=== PATIENT | female | born 1980 | race Caucasian/White ===

== ENCOUNTER 2022-06-16 09:59 | Emergency (ER) | payer OTHER, SELFPAY ==
[2022-06-16 11:53] LABS: Urine Blood Negative (Negative); Urine Glucose Negative (Negative); Urine Protein Negative (Negative); Urine Specific Gravity >=1.030 (1.005-1.030); Urine pH 5.5 (5.0-7.0)
--- NOTE | 2022-06-16 13:12 | RAD REPORT ---
EXAM DESCRIPTION: RAD - Pelvis - 06/16/2022 12:57 pm CLINICAL HISTORY: TRAUMA COMPARISON: No comparisons FINDINGS: No fracture, dislocation or radiographic evidence of AVN. IMPRESSION: Negative study.
--- NOTE | 2022-06-16 13:12 | RAD REPORT ---
EXAM DESCRIPTION: RAD - Ribs Bilateral - 06/16/2022 12:56 pm CLINICAL HISTORY: TRAUMA Fall, left-sided pain COMPARISON: CHEST SINGLE VIEW dated 11/26/2012 FINDINGS: There is a significant scoliosis of the thoracolumbar spine with probable vertebral body a nomaly or fusion anomaly at the thoracolumbar junction. No displaced rib fractures seen. The lungs ar e clear. No pneumothorax. IMPRESSION: No displaced rib fracture evident.
--- NOTE | 2022-06-16 13:24 | EDPHYS ---
Physician Documentation [facility] Name: Humaira Hernández Age: 41 yrs Sex: Female : 1980 Arrival Date: 06/16/2022 Time: 10:02 Bed 9 Private MD: ED Physician Ronny Hamm HPI: 06/16 13:20 This 41 yrs old Female presents to ER via Ambulatory with complaints of left jl9 rib pain s/p fall 5 days ago while rollerskating. . 13:20 Onset: The symptoms/episode began/occurred 5 day(s) ago. Associated signs and symptoms: jl9 The patient has no apparent associated signs or symptoms. Modifying factors: The patient symptoms are alleviated by rest, the patient symptoms are aggravated by movement. 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 - Social history:: Smoking status: Patient denies any tobacco usage or history of. ROS: 13:21 Constitutional: Negative for fever, chills, and weight loss, Eyes: Negative for injury, jl9 pain, redness, and discharge, ENT: Negative for injury, pain, and discharge, Neck: Negative for injury, pain, and swelling, Cardiovascular: Negative for chest pain, palpitations, and edema. 13:21 Abdomen/GI: Negative for abdominal pain, nausea, vomiting, diarrhea, and constipation, Back: Negative for injury and pain, MS/Extremity: Negative for injury and deformity, Skin: Negative for injury, rash, and discoloration, Neuro: Negative for headache, weakness, numbness, tingling, and seizure, Psych: Negative for depression, anxiety, suicide ideation, homicidal ideation, and hallucinations, Allergy/Immunology: Negative for hives, rash, and allergies, Endocrine: Negative for neck swelling, polydipsia, polyuria, polyphagia, and marked weight changes, Hematologic/Lymphatic: Negative for swollen nodes, abnormal bleeding, and unusual bruising. 13:21 Respiratory: Positive for left sided rib pain. Exam: 13:22 Constitutional: This is a well developed, well nourished patient who is awake, alert, jl9 and in no acute distress. Head/Face: Normocephalic, atraumatic. Eyes: Pupils equal round and reactive to light, extra-ocular motions intact. Lids and lashes normal. Conjunctiva and sclera are non-icteric and not injected. Cornea within normal limits. Periorbital areas with no swelling, redness, or edema. ENT: Mucous membranes moist. Neck: Trachea midline, no thyromegaly or masses palpated, and no cervical lymphadenopathy. Supple, full range of motion without nuchal rigidity, or vertebral point tenderness. No Meningismus. 13:22 Cardiovascular: Regular rate and rhythm with a normal S1 and S2. No gallops, murmurs, or rubs. Normal PMI, no JVD. No pulse deficits. Respiratory: Lungs have equal breath sounds bilaterally, clear to auscultation and percussion. No rales, rhonchi or wheezes noted. No increased work of breathing, no retractions or nasal flaring. Abdomen/GI: Soft, non-tender, with normal bowel sounds. No distension or tympany. No guarding or rebound. No evidence of tenderness throughout. Back: No spinal tenderness. No costovertebral tenderness. Full range of motion. Skin: Warm, dry with normal turgor. Normal color with no rashes, no lesions, and no evidence of cellulitis. MS/ Extremity: Pulses equal, no cyanosis. Neurovascular intact. Full, normal range of motion. Neuro: Awake and alert, GCS 15, oriented to person, place, time, and situation. Cranial nerves II-XII grossly intact. Motor strength 5/5 in all extremities. Sensory grossly intact. Cerebellar exam normal. Normal gait. Psych: Awake, alert, with orientation to person, place and time. Behavior, mood, and affect are within normal limits. 13:22 Chest/axilla: Inspection: normal, Palpation: tenderness, Axilla: are normal. Vital Signs: 10:06 BP 120 / 58; Pulse 80; Resp 17; Temp 98.4(TE); Pulse Ox 100% on R/A; Weight 54.88 kg tw2 (R); Height 4 ft. 10 in. (147.32 cm); Pain 8/10; 13:45 BP 118 / 58; Pulse 78; Resp 18; Pulse Ox 100% ; kb3 10:06 Body Mass Index 25.29 (54.88 kg, 147.32 cm) tw2 MDM: 10:55 Patient medically screened. jl9 13:22 Data reviewed: vital signs, nurses notes. Counseling: I had a detailed discussion with jl9 the patient and/or guardian regarding: the historical points, exam findings, and any diagnostic results supporting the discharge/admit diagnosis, radiology results, the need for outpatient follow up, to return to the emergency department if symptoms worsen or persist or if there are any questions or concerns that arise at home. 06/16 11:54 Order name: Urine Dipstick-Ancillary; Complete Time: 11:58 [facility] 06/16 13:34 Order name: Urine --Ancillary (enter results); Complete Time: 13:49 06/16 10:55 Order name: Urine Test (obtain specimen); Complete [facility]: 13:43 [facility] 06/16 10:55 Order name: Urine Dipstick-Ancillary (obtain specimen); Complete Time: 13:43 [facility] 06/16 10:55 Order name: XRAY Ribs BILATERAL; Complete Time: 13:19 [facility] 06/16 10:55 Order name: XRAY Pelvis; Complete Time: 13:19 [facility] Administered Medications: No medications were administered Disposition Summary: 06/16/22 13:23 Discharge Ordered Location: Home jl9 Condition: Stable jl9 Diagnosis - Sprain of ribs jl9 Followup: jl9 - With: Private Physician - When: 1 - 2 days - Reason: Recheck today's complaints, Continuance of care, Re-evaluation by your physician Discharge Instructions: - Discharge Summary Sheet jl9 - Rib Contusion jl9 Forms: - Medication Reconciliation Form jl9 - Thank You Letter jl9 - Antibiotic Education jl9 - Prescription Opioid Use jl9 - Work release form kb3 Signatures: Dispatcher [employer] EDMS Emi Santillan RN RN tw2 Han, Bipin jl9
--- NOTE | 2022-06-16 13:24 | ER ---
Nurse's Notes [facility] Name: Humaira Hernández Age: 41 yrs Sex: Female : 1980 Arrival Date: 06/16/2022 Time: 10:02 Bed 9 Private MD: Diagnosis: Sprain of ribs Presentation: 06/16 10:06 Chief complaint: Patient states: i had a rollerbladeing accident satur. we were tw2 playing tag. i ended up falling all on the LEFT side. my left hip is bruised. it feels like a bone is going to come through my skin and its under my left breast. i do have heart problems and i might be . Coronavirus screen: At this time, the client does not indicate any symptoms associated with coronavirus-19. Ebola Screen: Patient denies travel to an Ebola-affected area in the 21 days before illness onset. Initial Sepsis Screen: Does the patient meet any 2 criteria? No. Patient's initial sepsis screen is negative. Does the patient have a suspected source of infection? No. Patient's initial sepsis screen is negative. Risk Assessment: Do you want to hurt yourself or someone else? Patient reports no desire to harm self or others. Onset of symptoms was June 16, 2022. 10:06 Method Of Arrival: Ambulatory tw2 10:06 Acuity: SARINA 3 tw2 Triage Assessment: 10:10 General: Appears in no apparent distress. slender, well groomed, Behavior is calm, tw2 cooperative, appropriate for age. Pain: Complains of pain in left rib cage. Neuro: Level of Consciousness is awake, alert, obeys commands, Oriented to person, place, time, situation. Respiratory: Airway is patent Respiratory effort is even, unlabored, Respiratory pattern is regular, symmetrical. 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 - Social history:: Smoking status: Patient denies any tobacco usage or history of. Screenin:14 Abuse screen: Denies threats or abuse. Nutritional screening: No deficits noted. tw2 Tuberculosis screening: No symptoms or risk factors identified. Fall Risk None identified. Assessment: 12:30 General: Appears in no apparent distress. Behavior is calm, cooperative, Received care kb3 of pt from [email or web address]. PT is AAO x4, ambulatory. Reports she tripped and fell while roller blading at a skating rink on Monday. Reports she fell to a hard wood surface and landed on her left side. Reports bruising to her left hip and left rib pain from axilla to lower ribs. Pt denies LOC, denies difficulty breathing, reports pain is increased with deep breathing and movement.. 12:30 Musculoskeletal: Reports pain in left upper and lower ribs, midaxillary. kb3 Vital Signs: 10:06 BP 120 / 58; Pulse 80; Resp 17; Temp 98.4(TE); Pulse Ox 100% on R/A; Weight 54.88 kg tw2 (R); Height 4 ft. 10 in. (147.32 cm); Pain 8/10; 13:45 BP 118 / 58; Pulse 78; Resp 18; Pulse Ox 100% ; kb3 10:06 Body Mass Index 25.29 (54.88 kg, 147.32 cm) tw2 ED Course: 10:02 Patient arrived in ED. rg4 10:06 Arm band placed on. tw2 10:10 Triage completed. tw2 10:53 Bipin Han is PHCP. jl9 10:53 Ronny Hamm MD is Attending Physician. jl9 12:30 Patient has correct armband on for positive identification. Bed in low position. Call kb3 light in reach. 12:30 No provider procedures requiring assistance completed. Patient did not have IV access kb3 during this emergency room visit. 12:33 Dorina Deluca, RN is Primary Nurse. kb3 12:47 Patient moved to radiology. kb3 12:58 XRAY Ribs BILATERAL In Process Unspecified. EDMS 12:58 XRAY Pelvis In Process Unspecified. EDMS Administered Medications: No medications were administered Medication: 10:14 VIS not applicable for this client. tw2 Outcome: 13:23 Discharge ordered by . brook 13:45 Discharged to home ambulatory. kb3 13:45 Condition: stable 13:45 Discharge instructions given to patient, Instructed on discharge instructions, follow up and referral plans. medication usage, Demonstrated understanding of instructions, follow-up care, medications. 14:00 Patient left the ED. kb3 Signatures: Dispatcher [employer] EDMS Emi Santillan, RN RN tw2 Lucrecia Sloan John jl9 Dorina Deluca, RN RN kb3
[2022-06-17 15:16] VITALS: TEMP 98.4; O2SAT 100
[2022-06-17 15:47] VITALS: BP 118/58
== END 2022-06-16 14:00 | disposition home or self-care (01) ==
LOC: ER 09:59
DX: S23.41XA Sprain of ribs, initial encounter (principal)
CPT/HCPCS: 71110; 72170; 81003; 81025; 99283

== ENCOUNTER 2025-07-21 20:31 | Emergency (ER) | payer OTHER ==
[2025-07-21 21:52] LABS: Absolute Lymphocytes (CBC) 1.5 K/uL (0.7-4.9); Hematocrit 31.9 % (36.0-45.0); Hemoglobin 10.2 g/dL (12.0-15.0); MCH 25.2 pg (27.0-35.0); MCHC 32.0 g/dL (32.0-36.0); MCV 78.9 fL (80-100); MPV 9.6 fL (7.6-11.3); Nucleated RBC Absolute Count 0.0 (0-0); Nucleated Red Blood Cells % 0.0 % (0-0); RBC Red Blood Cell Count 4.04 M/uL (3.86-4.86); White Blood Count 12.10 thou/uL (4.3-10.9)
[2025-07-21 22:28] LABS: ALT/SGPT 35 U/L (13-56); Albumin 3.8 g/dL (3.4-5.0); Albumin/Globulin Ratio 1.0 (1.1-1.8); Alkaline Phosphatase 82 U/L (45-117); Anion Gap 8.4 mEq/L (5.0-15.0); BUN Blood Urea Nitrogen 13 mg/dL (7-18); Globulin 3.9 g/dL (2.3-3.5); Glucose Level 116 mg/dL (74-106); Troponin High Sensitivity 16.2 pg/mL (<58.9)
[2025-07-21 22:33] LABS: AST/SGOT 31 U/L (15-37); Bilirubin Indirect, Calculated 0.2 mg/dL (0.2-0.8); Magnesium 2.1 mg/dL (1.6-2.4); Potassium 3.4 mEq/L (3.5-5.1)
--- NOTE | 2025-07-22 01:02 | EDPHYS ---
Physician Documentation [facility] Name: Humaira Castellanos Age: 44 yrs Sex: Female : 1980 Arrival Date: 07/21/2025 Time: 20:31 Bed 24 Private MD: ED Physician Chuck Verduzco HPI: 07/21 22:07 This 44 yrs old Female presents to ER via EMS with complaints of Abdominal Pain, kb Weakness. 22:07 Patient is a 44-year-old female who presents for near syncope that occurred just prior kb to arrival. States she felt some right lower quadrant pain after eating, went to the restroom and had a near syncopal episode. Reports her watch showed a heart rate down to 48. Patient states she is feeling weak now and still having abdominal pain.. Historical: - Allergies: 20:59 Aspirin; kj2 20:59 Codeine; kj2 20:59 Phenergan; kj2 - PMHx: 20:59 Atrial fibrillation; Cardioversion; Cardioversion; Cardioversion; mitral valve kj2 prolapse; Tachycardia; - PSHx: 20:59 3 cardiac ablations; section; kj2 - Immunization history:: Adult Immunizations unknown. - Infectious Disease History:: Denies. - Social history:: Smoking status: unknown. ROS: 22:05 Constitutional: As per HPI kb Exam: 22:04 Constitutional: This is a well developed, well nourished patient who is awake, alert, kb and in no acute distress. Head/Face: Normocephalic, atraumatic. ENT: Moist Mucous membranes Cardiovascular: Regular rate Respiratory: Respirations even and unlabored. No increased work of breathing. Talking in full sentences Skin: Warm, dry with normal turgor. Normal color. MS/ Extremity: Pulses equal, no cyanosis. Neurovascular intact. Full, normal range of motion. Neuro: Awake and alert, GCS 15, oriented to person, place, time, and situation. 22:04 ECG was reviewed by the Attending Physician. Vital Signs: 20:45 BP 98 / 56; Pulse 80; Resp 20; Temp 97.9; Pulse Ox 99% ; kj2 22:45 BP 111 / 54; Pulse 78; Resp 20; Pulse Ox 100% ; kj2 22:47 Weight 56.7 kg; Height 4 ft. 10 in. ; kj2 23:32 BP 125 / 57 Standing; Pulse 78; Resp 20; kj2 23:32 BP 122 / 62 Sitting; Pulse 70; Resp 20; kj2 23:40 BP 100 / 58 Supine; Pulse 67; Resp 18; kj2 07/22 00:00 BP 101 / 58; Pulse 68; Resp 17; Pulse Ox 99% ; jj7 01:00 BP 110 / 55; Pulse 69; Resp 18; Temp 98; Pulse Ox 97% ; j7 07/21 22:47 Body Mass Index 26.12 (56.70 kg, 147.32 cm) kj2 MDM: 07/21 20:37 Medical Screening Exam initiated kb 22:06 Data reviewed: vital signs, nurses notes. Historians other than the Patient: EMS: [facility]. 07/22 01:00 Differential diagnosis: appendicitis, non-specific abd pain, Vasovagal syncope, kb dehydration. Consideration of Admission/Observation Escalation of care including admission/observation considered. Admission considered and recommended but patient states she is feeling better and wants to go home. states this happens occasionally and patient has follow-up with her ordnance engineering technician and PCP at the beginning of August whenever they get back home.. Management of patient was discussed with the following: Highway Patrol Officer: Dr. Abraham, EKG reviewed by him, no intervention needed at this time. Counseling: I had a detailed discussion with the patient and/or guardian regarding the historical points, exam findings, and any diagnostic results supporting the discharge/admit diagnosis, lab results, radiology results, the need for outpatient follow up, a ordnance engineering technician, a family practitioner, to return to the emergency department if symptoms worsen or persist or if there are any questions or concerns that arise at home. 01:02 ED course: Has been states patient was told a few years ago that she might need to have kb her blood gallbladder removed due to stones.. 07/21 20:37 Order name: Basic Metabolic Panel; Complete Time: 22:39 kb 07/21 20:37 Order name: CBC with Diff; Complete Time: 21:55 kb 07/21 20:37 Order name: Hepatic Function; Complete Time: 22:39 kb 07/21 20:37 Order name: Magnesium; Complete Time: 22:39 kb 07/21 20:37 Order name: Troponin High Sensitivity; Complete Time: 22:39 kb 07/21 22:46 Order name: Abdomen EDMS 07/21 20:37 Order name: EKG; Complete Time: 20:38 kb 07/21 20:37 Order name: Cardiac monitoring; Complete Time: 22:41 kb 07/21 20:37 Order name: EKG - Nurse/Tech; Complete Time: 22:41 kb 07/21 20:37 Order name: IV Saline Lock; Complete Time: 21:07 kb 07/21 20:37 Order name: Labs collected and sent; Complete Time: 22:41 kb 07/21 20:37 Order name: NPO; Complete Time: 22:41 kb 07/21 20:37 Order name: O2 Per Protocol; Complete Time: 22:41 kb 07/21 20:37 Order name: O2 Sat Monitoring; Complete Time: 22:41 kb 07/21 20:37 Order name: Orthostatics; Complete Time: 23:54 kb EC/20 22:04 Rate is 82 beats/min. Rhythm is regular. QRS [place] is Normal. RI interval is normal at kb 162 msec. QRS interval is normal at 110 msec. QT interval is normal at 467 msec. Administered Medications: No medications were administered Disposition: 07/22 04:00 Co-signature as Attending Physician, Chuck Verduzco MD I agree with the assessment sp4 and plan of care. I reviewed the patient's care provided by Advanced Practice Provider \T\ agree w/ the diagnosis \T\ care plan. I personally saw the pt \T\ performed a substantive portion of the visit, incldng all aspects of the (History/Exam/Medical Decision Making). Disposition Summary: 07/22/25 01:01 Discharge Ordered Notes: Location: Home kb Condition: Stable kb Diagnosis - Syncope Near kb - Other cholelithiasis without obstruction kb Followup: kb - With: Emergency Department - When: As needed - Reason: Worsening of condition Followup: kb - With: Private Physician - When: 2 - 3 days - Reason: Recheck today's complaints, Continuance of care, Re-evaluation by your physician Discharge Instructions: - Discharge Summary Sheet kb - Cholelithiasis, [id number] kb - Near-Syncope, [id number] kb Forms: - Medication Reconciliation Form kb - Antibiotic Education kb - Prescription Opioid Use kb - Patient Portal Instructions kb - Leadership Thank You Letter kb Signatures: Dispatcher [employer] EDNM Radha Silverman, SCENERY BUILDER-C SCENERY BUILDER-Ckb Chuck Verduzco MD MD sp4 Komal Hoffmann RN RN kj2 Corrections: (The following items were deleted from the chart) 07/21 20:38 20:38 BASIC METABOLIC PANEL+C.LAB.BRZ ordered. EDMS EDMS 20:38 20:38 CBC+H.LAB.BRZ ordered. EDMS EDMS 20:38 20:38 HEPATIC FUNCTION+C.LAB.BRZ ordered. EDMS EDMS 20:38 20:38 MAGNESIUM+C.LAB.BRZ ordered. EDMS EDMS 20:38 20:38 Troponin High Sensitivity+C.LAB.BRZ ordered. EDMS EDMS 22:46 20:38 Abdomen Pelvis W Con+CT.RAD.BRZ ordered. EDMS EDMS
--- NOTE | 2025-07-22 01:02 | ER ---
Nurse's Notes [facility] Name: Humaira Castellanos Age: 44 yrs Sex: Female : 1980 Arrival Date: 07/21/2025 Time: 20:31 Bed 24 Private MD: Diagnosis: Syncope Near;Other cholelithiasis without obstruction Presentation: 07/21 20:30 Chief complaint: EMS states: pain to upper abdomen, weakness when on commode trying to kj2 have a bowel movement. Coronavirus screen: Client denies travel out of the [place] in the last 14 days. Ebola Screen: No symptoms or risks identified at this time. Initial Sepsis Screen: Does the patient meet any 2 criteria?. Onset of symptoms was July 21, 2025. 20:30 Method Of Arrival: EMS: [facility] kj2 20:30 Risk Assessment: Do you want to hurt yourself or someone else? Patient reports no kj2 desire to harm self or others. 22:48 Initial Sepsis Screen: Does the patient have a suspected source of infection?. kj2 23:33 Acuity: SARINA 3 kj2 Triage Assessment: 20:30 General: Appears in no apparent distress. Behavior is calm. Pain: Complains of pain in kj2 upper abdomen Pain currently is 5 out of 10 on a pain scale. Neuro: Level of Consciousness is awake, alert, obeys commands, Oriented to person, place, time, situation. Cardiovascular: Patient's skin is warm and dry. Respiratory: Airway is patent Respiratory effort is even, unlabored. GI: Reports upper abdominal pain. : No signs and/or symptoms were reported regarding the genitourinary system. Historical: - Allergies: 20:59 Aspirin; kj2 20:59 Codeine; kj2 20:59 Phenergan; kj2 - PMHx: 20:59 Atrial fibrillation; Cardioversion; Cardioversion; Cardioversion; mitral valve kj2 prolapse; Tachycardia; - PSHx: 20:59 3 cardiac ablations; section; kj2 - Immunization history:: Adult Immunizations unknown. - Infectious Disease History:: Denies. - Social history:: Smoking status: unknown. Screenin:30 [facility] ED Fall Risk Assessment (Adult) History of falling in the last 3 months, kj2 including since admission No falls in past 3 months (0 pts) Confusion or Disorientation No (0 pts) Intoxicated or Sedated No (0 pts) Impaired Gait No (0 pts) Mobility Assist Device Used No (0 pt) Altered Elimination Score/Fall Risk Level 0 - 2 = Low Risk Maintained a safe environment, Hourly rounding (assess needs \T\ fall precautionary measures) done. Abuse screen: Denies threats or abuse. Denies injuries from another. Nutritional screening: No deficits noted. Tuberculosis screening: No symptoms or risk factors identified. Assessment: 20:30 General: see triage assessment. kj2 20:30 GI: Bowel sounds present X 4 quads. Abdomen is tender to palpation X 4 quads. kj2 21:30 Reassessment: Patient appears in no apparent distress at this time. Patient and/or kj2 family updated on plan of care and expected duration. Pain level reassessed. Patient is alert, oriented x 3, equal unlabored respirations, skin warm/dry/pink. 22:30 Reassessment: Patient appears in no apparent distress at this time. Patient and/or kj2 family updated on plan of care and expected duration. Pain level reassessed. Patient is alert, oriented x 3, equal unlabored respirations, skin warm/dry/pink. 23:32 Reassessment: Patient appears in no apparent distress at this time. Patient and/or kj2 family updated on plan of care and expected duration. Pain level reassessed. Patient is alert, oriented x 3, equal unlabored respirations, skin warm/dry/pink. 07/22 00:00 Reassessment: ASSUMED CARE OF PT. PT SITTING IN BED. NO DISTRESS NOTED. VS STABLE. jj7 General: Appears in no apparent distress. comfortable, Behavior is calm, cooperative, appropriate for age. Vital Signs: 07/21 20:45 BP 98 / 56; Pulse 80; Resp 20; Temp 97.9; Pulse Ox 99% ; kj2 22:45 BP 111 / 54; Pulse 78; Resp 20; Pulse Ox 100% ; kj2 22:47 Weight 56.7 kg; Height 4 ft. 10 in. ; kj2 23:32 BP 125 / 57 Standing; Pulse 78; Resp 20; kj2 23:32 BP 122 / 62 Sitting; Pulse 70; Resp 20; kj2 23:40 BP 100 / 58 Supine; Pulse 67; Resp 18; kj2 07/22 00:00 BP 101 / 58; Pulse 68; Resp 17; Pulse Ox 99% ; jj7 01:00 BP 110 / 55; Pulse 69; Resp 18; Temp 98; Pulse Ox 97% ; jj7 07/21 22:47 Body Mass Index 26.12 (56.70 kg, 147.32 cm) kj2 ED Course: 07/21 20:30 Patient has correct armband on for positive identification. Bed in low position. Call kj2 light in reach. Adult w/ patient. Provided Education on: call light. 20:35 Patient arrived in ED. rv1 20:37 Radha Silverman [facility]-C [facility] kb 20:37 Chuck Verduzco MD is Attending Physician. kb 20:40 Maintain EMS IV. Dressing intact. Good blood return noted. Site clean \T\ dry. Gauge \T\ kj 2 site: 20 gauge in left wrist. Flushed with 10 mL NS. 20:57 Komal Hoffmann, RN is Primary Nurse. kj2 22:46 No provider procedures requiring assistance completed. kj2 22:59 Abdomen In Process Unspecified. EDMS 23:33 Triage completed. kj2 07/22 00:00 Arm band placed on right wrist. jj7 01:15 IV discontinued, intact, bleeding controlled, No redness/swelling at site. Pressure jj7 dressing applied. Administered Medications: No medications were administered Medication: 07/21 23:36 VIS not applicable for this client. kj2 Outcome: 07/22 01:01 Discharge ordered by . kb 01:15 Discharged to home ambulatory, with family, jj7 01:15 Condition: improved 01:15 Discharge instructions given to patient, Instructed on discharge instructions, Demonstrated understanding of instructions, 01:15 Patient left the ED. jj7 Signatures: Dispatcher [employer] EDMS Radha Silverman FNP-C FNP-Ckb Johnson, Juwairiyah RN RN Danielle Rojas rv1 Komal Hoffmann, RN RN kj2 Corrections: (The following items were deleted from the chart) 07/21 22:56 20:45 BP 98 / 56; Pulse 80bpm; Resp 20bpm; Pulse Ox 99%; kj2 kj2 07/22 01:30 01:28 Patient left the ED. jjNohemi jj7
--- NOTE | 2025-07-22 05:32 | RAD REPORT ---
EXAM DESCRIPTION: Abdomen Pelvis Wo Contrast CLINICAL HISTORY: 44 years Female, ABD PAIN TECHNIQUE: Helical CT axial images are obtained from the lung bases to the pubic symphysis without IV contrast. No oral contrast was administered. Multiplanar reconstruction. This exam was performed according to our departmental dose-optimization program, which includes automated exposure control, a djustment of the mA and/or kV according to patient size and/or use of iterative reconstruction technique. COMPARISON: None. FINDINGS: LUNG BASES: No basilar consolidation or effusions. LIVER: Normal in size. Normal attenuation. No focal masses. HEPATOBILIARY: Cholelithiasis with lobulated elongated appearance of the gallbladder. No CT evident a cute inflammatory changes. No intra- or extrahepatic ductal dilatation. SPLEEN: Normal size. PANCREAS: Normal size and contour. No focal mass. ADRENAL GLANDS: Normal size. No adrenal masses. KIDNEYS: Bilateral kidneys are normal in size without obstructing calculi or hydronephrosis. No nep hrolithiasis. No significant cysts are present. BOWEL AND MESENTERY: No small or large bowel dilatation. No colonic diverticulosis. Normal appendix. No abnormal mesenteric lymphadenopathy. No free fluid or pneumoperitoneum. RETROPERITONEUM: Normal caliber abdominal aorta without aneurysm. No abnormal retroperitoneal lymphad enopathy. PELVIS: Urinary bladder is unremarkable. Uterus and adnexal regions are unremarkable. ABDOMINAL WALL: The abdominal wall is intact. BONES: No suspicious osseous lytic or blastic lesions seen. IMPRESSION: 1. No acute intra-abdominal or pelvic disease. 2. Cholelithiasis with lobulated elongated appearance of the gallbladder. No CT evident acute infla mmatory changes. Correlate clinically and if warranted consider further imaging evaluation with right upper quadrant ultrasound. Electronically signed by: Suleiman Patterson MD 07/21/2025 11:42 PM CDT 1P Due to temporary technical issues with the PACS/[employer] reporting system, reports are being rajni d by the in-house radiologist without review as a courtesy to ensure prompt reporting the interpreting radiologist is fully responsible for the content of the report. Transcribed Date/Time: 07/22/2025 5:31 AM
[2025-07-22 08:37] VITALS: BP 110/55; TEMP 98; O2SAT 97
== END 2025-07-22 01:28 | disposition home or self-care (01) ==
LOC: ER 20:31
DX: R55 Syncope and collapse (principal); K80.80 Other cholelithiasis without obstruction
CPT/HCPCS: 36415; 74176; 80048; 80076; 83735; 84484; 85025; 93005; 99283